=== PATIENT | male | born 1960 | race Caucasian/White ===

== ENCOUNTER 2016-06-04 07:11 | Inpatient (IN) | payer OTHER ==
[~2016-06-04] VITALS: Ht 175.3 cm; Wt 67.1 kg
--- NOTE | ~2016-06-04 | EKG ---
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: Jorge LANDERS : 1960 Requested By: Jd Casillas Order Number: [id number] MD: Mariano Fox Measurements Intervals [place] Rate: 100 P: 76 AR: 212 QRS: 46 QRSD: 95 T: 45 QT: 352 QTc: 454 Interpretive Statements Sinus tachycardia Prolonged AR interval Compared to ECG 11/20/2015 15:52:02 No significant change was found Electronically Signed On 06-07-2016 8:18:49 [facility] by Mariano Fox [email or web address] <ELECTRONICALLY SIGNED> By: Mariano Fox MD, [facility] 06/07/1618 7 7 Mariano Fox MD, [facility] /EPI
[~2016-06-04 07:11] MED LIST: AMBIEN 5 MG TABL5 M1 PO; ASPIR 8181 MG PO; BENADRYL25 MG PO; CARVEDILOL12.5 MG PO; COREG25 MG PO; COZAAR 50 MG TA50 M2 PO; DEPAKOTE125 MG PO; DOXYCYCLINE 10100 MG PO; FLOMAX0.4 MG PO; HYDRALAZINE 2525 MG PO; HYDROCODONE-AP1 EAC6 PO; KEPPRA PO; KEPPRA250 MG PO; LIPITOR80 MG PO; LISINOPRIL20 MG PO; LISINOPRIL5 MG PO; LORTAB 7.5-3251 EACH PO; MUCINEX TA600 MG/TA2 PO; MULTI VITAMIN1 EACH PO; NEXIUM40 MG PO; NICOTINE TRANSD21 M1; NORVASC10 MG PO; PAIN & FEVER500 MG PO; PREDNISONE 10 M10 MG PO; PREDNISONE 20 M20 MG PO; PROAIR HFA8.5 GM INH; PROVENTIL HFA6.7 G1 INH; REMERON15 MG PO; SYMBICORT80 MCG/4.5; TESSALON PERLE100 MG PO; VALIUM5 MG PO; VENTOLIN HFA 1818 GM INH; XARELTO15 MG PO; ZOFRAN ODT4 MG PO; ZPAK PO
[2016-06-04 07:12] VITALS: BP 160/114
[2016-06-04 09:09] LABS: ABSOLUTE NEUTROPHILS 4.5 thou/uL (1.4-8.2); BASOPHILS 0.9 % (0.0-2.0); EOSINOPHILS 0.1 % (0.0-3.0); HEMATOCRIT 43.9 % (42.0-52.0); HEMOGLOBIN 14.9 gm/dL (14.0-18.0); LYMPHOCYTES 27.4 % (24.0-44.0); MCH 28.4 pg (26.0-34.0); MCHC 33.8 % (28.0-37.0); MCV 83.8 fL (80.0-100.0); PLATELET COUNT 144 thou/uL (150-400); POLYS 66.6 % (36.0-66.0); RBC 5.24 mil/uL (4.50-6.00); RDW 22.6 % (10.5-14.5); WBC 6.7 thou/uL (4.0-11.0)
[2016-06-04 09:16] LABS: MANUAL DIFF NO
[2016-06-04 09:20] LABS: ANION GAP 15 mmol/L (7-16); BUN 7 mg/dL (7-18); CHLORIDE 103 mmol/L (98-107); CO2 23 mmol/L (21-32); CREATININE 0.9 mg/dL (0.6-1.3); GLUCOSE 102 mg/dL (70-99); POTASSIUM 4.1 mmol/L (3.5-5.1); SODIUM 141 mmol/L (136-145)
[2016-06-04 09:21] LABS: INR 1.1; PROTIME 11.2 Seconds (9.3-11.4)
[2016-06-04 09:33] LABS: NT-PRO BRAIN NAT PEPTIDE 204 pg/mL (<300); TROPONIN-I < 0.04 ng/mL (<0.04-0.07)
[2016-06-04 09:45] LABS: URINE BILIRUBIN NEGATIVE (Negative); URINE BLOOD NEGATIVE (Negative); URINE COLOR YELLOW; URINE GLUCOSE-RANDOM* NEGATIVE (Negative); URINE KETONES NEGATIVE (Negative); URINE NITRITE NEGATIVE (Negative); URINE PROTEIN (DIPSTICK) NEGATIVE (Negative); URINE SPECIFIC GRAVITY <= 1.005 (1.003-1.035); URINE UROBILINOGEN 0.2 E.U./dl (0.2-1.0)
[2016-06-04 09:53] LABS: ANISOCYTOSIS 1+
[2016-06-04 09:54] LABS: POIKILOCYTOSIS SLIGHT
[2016-06-04 10:48] VITALS: BP 148/90
[2016-06-04 11:46] VITALS: BP 159/119
[2016-06-04 16:37] LABS: CHOLESTEROL 119 mg/dL (<200); HDL CHOLESTEROL 66 mg/dL (>40); LDL CHOLESTEROL 41 mg/dL (<100); TC:HDL 1.8 Ratio (Not establshd); TRIGLYCERIDE 64 mg/dL (<150); VLDL 13 mg/dL (<40)
[2016-06-04 16:46] VITALS: BP 152/109
[2016-06-04 19:36] VITALS: BP 154/119
[2016-06-05 04:11] VITALS: BP 157/102
[2016-06-05 06:37] LABS: HEMATOCRIT 44.1 % (42.0-52.0); HEMOGLOBIN 14.9 gm/dL (14.0-18.0); MCH 28.4 pg (26.0-34.0); MCHC 33.8 % (28.0-37.0); MCV 83.8 fL (80.0-100.0); RBC 5.26 mil/uL (4.50-6.00); RDW 22.2 % (10.5-14.5); WBC 5.2 thou/uL (4.0-11.0)
[2016-06-05 06:59] LABS: CALCIUM 8.6 mg/dL (8.5-10.1); CREATININE 0.8 mg/dL (0.6-1.3); POTASSIUM 4.7 mmol/L (3.5-5.1)
[2016-06-05 08:19] VITALS: BP 183/124
[2016-06-05 13:11] VITALS: BP 155/115
[2016-06-05] MEDS ORDERED: KEPPRA 100100 MG/M1 PO (13:31)
[2016-06-05] MEDS ORDERED: XARELTO20 MG PO (13:31)
[2016-06-05] MEDS ORDERED: PEPCID40 MG PO (13:31)
[2016-06-05] MEDS ORDERED: PREDNISONE 10 M10 MG PO (13:31)
[2016-06-05] MEDS ORDERED: ALBUTEROL2.5 MG/0.1 INH (13:35)
[2016-06-05] MEDS ORDERED: NORVASC10 MG PO (13:35)
[2016-06-05] MEDS ORDERED: VALIUM5 MG PO (13:54)
== END 2016-06-05 15:42 | disposition home or self-care (01) | DRG 206 ==
LOC: ER 07:11 → EROBS 10:35 → 2N 10:48
PROVIDERS: Emergency Medicine; Internal Medicine Endocrinology, Diabetes & Metabolism
DX: M94.0 Chondrocostal junction syndrome [Tietze] (principal); J44.1 Chronic obstructive pulmonary disease with (acute) exacerbation; K21.9 Gastro-esophageal reflux disease without esophagitis; I10 Essential (primary) hypertension; G40.909 Epilepsy, unspecified, not intractable, without status epilepticus; F17.210 Nicotine dependence, cigarettes, uncomplicated; F12.90 Cannabis use, unspecified, uncomplicated; I25.10 Atherosclerotic heart disease of native coronary artery without angina pectoris; E78.5 Hyperlipidemia, unspecified; Z91.81 History of falling; Z88.1 Allergy status to other antibiotic agents; Z79.899 Other long term (current) drug therapy; I25.2 Old myocardial infarction; Z98.890 Other specified postprocedural states; Z86.711 Personal history of pulmonary embolism; Z91.013 Allergy to seafood; Z79.82 Long term (current) use of aspirin; Z82.49 Family history of ischemic heart disease and other diseases of the circulatory system; Z83.6 Family history of other diseases of the respiratory system; Z88.8 Allergy status to other drugs, medicaments and biological substances; Z88.0 Allergy status to penicillin
CPT/HCPCS: 10081

== ENCOUNTER 2016-06-11 08:08 | Emergency (ER) | payer OTHER ==
[~2016-06-11] VITALS: Ht 165.1 cm; Wt 66.2 kg
--- NOTE | ~2016-06-11 | EKG ---
[address] [address] ELECTROCARDIOGRAM REPORT Name: HONG COSTELLO [id number] Admission: 06/11/16 Attend Phys: Discharge: 06/11/16 Date of : 60 Report #: [id number] THIS REPORT FOR: //name// [facility] ED Test Date: 2016-06-11 Test Time: 08:24:05 Pat Name: HONG COSTELLO Department: Room: Gender: M Radio Journalist: [id number] : 1960 Requested By: Beto Heart Order Number: [id number] MD: Mariano Fox Measurements Intervals [place] Rate: 113 P: [place]: QRS: 0 QRSD: 93 T: 52 QT: 340 QTc: 467 Interpretive Statements Sinus tachycardia Otherwise no significant abnormality Compared to ECG 06/04/2016 07:18:21 No significant change was found Electronically Signed On 06-12-2016 14:16:21 [employer] by Mariano Fox [email or web address] <ELECTRONICALLY SIGNED> By: Mariano Fox MD, [facility] 06/12/16 1416 0824 3 Mariano Fox MD, FACC /EPI
[~2016-06-11 08:08] MED LIST changes: +ALBUTEROL2.5 MG/0.1 INH; +KEPPRA 100100 MG/M1 PO; +PEPCID40 MG PO; +XARELTO20 MG PO
[2016-06-11 10:31] LABS: URINE BILIRUBIN NEGATIVE (Negative); URINE BLOOD NEGATIVE (Negative); URINE COLOR YELLOW; URINE GLUCOSE-RANDOM* NEGATIVE (Negative); URINE KETONES TRACE (Negative); URINE LEUKOCYTES-REFLEX NEGATIVE (Negative); URINE PROTEIN (DIPSTICK) NEGATIVE (Negative); URINE SPECIFIC GRAVITY <= 1.005 (1.003-1.035); URINE UROBILINOGEN 0.2 E.U./dl (0.2-1.0)
[2016-06-11 10:59] LABS: HEMATOCRIT 44.9 % (42.0-52.0); HEMOGLOBIN 15.4 gm/dL (14.0-18.0); MCH 28.8 pg (26.0-34.0); MCHC 34.3 % (28.0-37.0); MCV 83.8 fL (80.0-100.0); PLATELET COUNT 117 thou/uL (150-400); RBC 5.36 mil/uL (4.50-6.00); RDW 21.5 % (10.5-14.5); WBC 5.9 thou/uL (4.0-11.0)
[2016-06-11 11:00] LABS: MANUAL DIFF YES
[2016-06-11 11:01] LABS: ANION GAP 12 mmol/L (7-16); BUN 9 mg/dL (7-18); CALCIUM 8.8 mg/dL (8.5-10.1); CHLORIDE 102 mmol/L (98-107); CO2 25 mmol/L (21-32); GLUCOSE 73 mg/dL (70-99); SODIUM 139 mmol/L (136-145)
[2016-06-11 11:11] LABS: ALBUMIN 3.8 g/dL (3.4-5.0); ALKALINE PHOSPHATASE 61 U/L (46-116); MAGNESIUM 1.8 mg/dL (1.8-2.4); SGOT 20 U/L (15-37); SGPT 15 U/L (30-65); TOTAL BILIRUBIN 0.5 mg/dL (<0.1-1.0); TOTAL PROTEIN 7.3 g/dL (6.4-8.2); TROPONIN-I < 0.04 ng/mL (<0.04-0.07)
[2016-06-11 11:24] LABS: ABSOLUTE NEUTROPHILS 3.6 thou/uL (1.4-8.2); TOTAL CELL COUNT 100
[2016-06-11 11:25] LABS: ANISOCYTOSIS 1+; HYPOCHROMASIA SLIGHT
[2016-06-11 11:27] LABS: AMP/METHAMP Negative (Negative); BARBITURATES Negative (Negative); BENZODIAZEPINES POSITIVE (Negative); COCAINE Negative (Negative); METHADONE Negative (Negative); OPIATES POSITIVE (Negative); PCP Negative (Negative); THC Negative (Negative)
[2016-06-11 11:31] LABS: TOXIC GRANULATION 1+
[2016-06-11] MEDS ORDERED: PREDNISONE 20 M20 MG PO (12:51)
[2016-06-11] MEDS ORDERED: TESSALON PERLE100 MG PO (12:51)
[2016-06-11] MEDS ORDERED: KEPPRA 100100 MG/M1 PO (13:02)
== END 2016-06-11 13:32 | disposition home or self-care (01) ==
LOC: ER 08:08
PROVIDERS: Emergency Medicine
DX: J44.1 Chronic obstructive pulmonary disease with (acute) exacerbation (principal); R10.31 Right lower quadrant pain; I10 Essential (primary) hypertension; J45.909 Unspecified asthma, uncomplicated; F17.210 Nicotine dependence, cigarettes, uncomplicated; F10.99 Alcohol use, unspecified with unspecified alcohol-induced disorder; Z98.49 Cataract extraction status, unspecified eye; Z88.4 Allergy status to anesthetic agent; Z88.1 Allergy status to other antibiotic agents; Z88.6 Allergy status to analgesic agent; Z88.0 Allergy status to penicillin; Z91.013 Allergy to seafood; Z91.018 Allergy to other foods